=== PATIENT | female | born 1970 | race Asian ===

== ENCOUNTER 2022-05-20 10:04 | Emergency (ER) | payer MEDICAID ==
[~2022-05-20] VITALS: Ht 162.6 cm; Wt 70.3 kg
[2022-05-20 11:09] VITALS: BP 128/80
--- NOTE | 2022-05-20 11:22 | NUR ---
ANDREW COLLECTED AND WALKED TO LAB
--- NOTE | 2022-05-20 12:54 | NUR ---
51 Y.O. F C/O COVID + TODAY AT HOME. PT HAS HAD A COUGH, SORE THROAT, HEADACHE AND STUFFY NOSE. DENIES FEVER, CHILLS, PAIN AND SOB. TOOK TYLENOL AT HOME LAST NIGHT. A&OX4, SKIN INTACT, VITALS WNL, AND STEADY GAIT. NKA HX:GESTATIONAL DIABETES
--- NOTE | 2022-05-20 13:22 | NUR ---
ANDREW RECOLLECTED AND WALKED TO LAB
--- NOTE | 2022-05-20 15:00 | NUR ---
PT LEFT WITHOUT DISCHARGE INSTRUCTIONS.
== END 2022-05-20 15:00 | disposition home or self-care (01) ==
LOC: MED 10:04
DX: U07.1 COVID-19 (principal)
CPT/HCPCS: 99283